=== PATIENT | male | born 1955 | race Caucasian/White ===

== ENCOUNTER 2019-04-08 08:37 | Emergency (ER) | payer BC ==
[2019-04-08 09:19] LABS: Bilirubin Negative (Negative); Blood, Urine Small (Negative); Clarity Clear (Clear); Glucose, Urine (Dipstick) Negative (Negative); Leukocyte Negative (Negative); Nitrite Negative (Negative); Protein, Urine (Dipstick) Negative (Neg-Trace); Urobilinogen 0.2 mg/dL (0.2-1.0)
[2019-04-08 09:32] LABS: Renal Epithelial 0-3 HPF (0-3); Squamous Epithelial 0-3 HPF (0-3); WBC/HPF 0-3 HPF (0-3)
[2019-04-08 09:33] LABS: Bacteria/HPF None Seen HPF (None Seen); Hyaline Casts/LPF 0-3 HYALINE CAST LPF (0-3 Hyaline)
== END 2019-04-08 10:18 | disposition home or self-care (01) ==
LOC: ERS 08:37
DX: R33.9 Retention of urine, unspecified (principal)
CPT/HCPCS: 51702; 81003; 81015; 87086

== ENCOUNTER 2019-08-10 06:35 | Day surgery (SDC) | payer MEDICARE ==
[2019-08-07 14:15] VITALS: BMI 31.8
[2019-08-10 08:05] LABS: Hemoglobin 13.8 g/dL (14.0-18.0); Mean Corpuscular HGB CONC 33.3 g/dL (32.0-36.0); Mean Corpuscular Hemoglobin 30.7 pg (27.0-31.0); Mean Corpuscular Volume 92.5 fL (78.0-98.0); Mean Platelet Volume 6.4 fL (7.4-10.4); Platelet Count 281 thou/uL (130-400); RBC Distribution Width 12.3 % (11.5-14.5); White Blood Cell (WBC) Count 6.5 thou/uL (4.8-10.8)
[2019-08-10 08:11] LABS: PTT 26.1 SEC (22.9-36.1); Prothrombin Time 13.3 SEC (12.0-14.7)
[2019-08-10 08:21] LABS: Anion Gap 11 mmol/L (10-20); BUN (Urea Nitrogen) 16 mg/dL (8.4-25.7); Calc. Creatinine Clearance 112 mL/min (70-130); Carbon Dioxide 22 mmol/L (23-31); Chloride 108 mmol/L (98-107); Estimated GFR-MDRD 76; Glucose 97 mg/dL (80-115); Potassium 4.1 mmol/L (3.5-5.1); Sodium 137 mmol/L (136-145)
[2019-08-10] MEDS ORDERED: Fentanyl 100 MCG/2 ML VIAL ONE (10:05)
--- NOTE | 2019-08-10 16:26 | OP ---
DATE OF PROCEDURE: 08/10/2019 PREOPERATIVE DIAGNOSIS: Bladder calculus. POSTOPERATIVE DIAGNOSIS: Bladder calculus. PROCEDURES PERFORMED: 1. Cystoscopy. 2. Laser lithotripsy of calculus with removal of stone fragments. ANESTHETIC: General. ESTIMATED BLOOD LOSS: Probably 50 to 100 mL. DRAINS PLACED: A 20-Afghan Bueno catheter with 15 mL in the balloon. FINDINGS: He has a stone that is probably 3 to 4 cm in size. DESCRIPTION OF PROCEDURE: Obtained written and verbal consent from the patient. After receiving IV antibiotics, he was taken to the operating suite. He was placed in the supine position on the treatment table. PlexiPulses were placed on his lower extremities and turned on. He was given a general anesthetic and oral obturator intubation. He was placed in the dorsal lithotomy position. He was sterilely prepped and draped for cystoscopy. Cystoscopy was performed with a 22-Afghan sheath. This was well lubricated and passed under direct vision through the male urethra and into the urinary bladder with aid of a video camera and monitor and 30 degree lens. He has a very large trilobar BPH. Two ureteral orifices and 1 to 2+ trabeculation, a fairly large bladder stone. No evidence of bladder tumor. We then brought in the large holmium laser fiber and used this to try to fragment the stone into tiny pieces as much as we could, working around the edges of it and turning it as we work. When it reduced in size, it began to crack off pieces, and we will try to whittle these pieces down with the laser to small enough ones, that we felt we could Ellik out. Once this was accomplished, we Ellik'd out a great number of fragments and reinspected, broke down some. The remaining was smaller and then Ellik'd out again and did the same process a couple more times until we could see no other sizable stone fragment remaining. At this point, the instruments were removed and a Bueno catheter sterilely inserted and inflated. It was hand irrigated. It went from reddish to pinkish in color. It was hooked up to a drainage bag and he was taken out of the dorsal lithotomy position and awakened and extubated and taken via stretcher to the recovery room. Job ID: [id number]
== END 2019-08-10 13:30 | disposition home or self-care (01) ==
LOC: SDC 06:35
PROVIDERS: ATTEND Urology
PROC: 0TCB8ZZ Extirpation of Matter from Bladder, Via Natural or Artificial Opening Endoscopic (ICD-10-PCS; principal; 2019-08-10)
DX: N21.0 Calculus in bladder (principal); N32.89 Other specified disorders of bladder; N40.1 Benign prostatic hyperplasia with lower urinary tract symptoms; Z79.899 Other long term (current) drug therapy; Z88.0 Allergy status to penicillin
CPT/HCPCS: 36415; 80048; 82365; 85027; 85610; 85730; 88300; J0690; J3010

== ENCOUNTER 2021-03-08 07:58 | Outpatient (CLI) | payer MEDICARE, OTHER | END 2021-03-08 07:59 | disposition home or self-care (01) | LOC: BICRAD 07:58 | PROVIDERS: ATTEND Family Medicine | DX: R06.00 Dyspnea, unspecified (principal); Z86.16 Personal history of COVID-19 | CPT/HCPCS: 71046 ==